=== PATIENT | female | born 1970 | race Caucasian/White ===

== ENCOUNTER 2020-06-01 00:47 | Emergency (ER) | payer OTHER ==
[~2020-06-01] VITALS: Ht 167.6 cm; Wt 72.6 kg
[~2020-06-01 00:47] MED LIST: LISI-648; SERT50TA
[2020-06-01 03:00] VITALS: BP 128/83
[2020-06-01 03:47] LABS: Urine Bacteria NONE SEEN /hpf (None Seen); Urine Blood TRACE /uL (Negative); Urine Specific Gravity 1.006 (1.001-1.035); Urine WBC <1 /hpf (0 - 5)
== END 2020-06-01 05:15 | disposition home or self-care (01) ==
LOC: EDBD 00:47 → EDUNIT# 00:47 → ER 00:51
DX: T78.1XXA Other adverse food reactions, not elsewhere classified, initial encounter (principal); I10 Essential (primary) hypertension; T78.49XA Other allergy, initial encounter; F41.9 Anxiety disorder, unspecified; X58.XXXA Exposure to other specified factors, initial encounter
CPT/HCPCS: 81001

== ENCOUNTER 2024-02-12 01:03 | Inpatient (IN) | payer MEDICAID, OTHER ==
[~2024-02-12] VITALS: Ht 167.6 cm; Wt 89.2 kg
[~2024-02-12 01:03] MED LIST changes: -LISI-648; +LISI10TA34; +LISI20TA56 PO; +METH4PAK PO
[2024-02-12 01:27] LABS: Basophils # (auto) 0 10 ^3/uL (0-0.2); Basophils % (auto) 0.5 % (0.0-2.0); Eosinophils # (auto) 0.3 10 ^3/uL (0-0.8); Eosinophils % (auto) 3.1 % (0.0-7.0); Hematocrit 41.6 % (36.0-46.0); Hemoglobin 13.9 g/dL (12.2-16.2); Lymphocytes # (auto) 1.1 10 ^3/uL (0.4-5.4); Lymphocytes % (auto) 13.4 % (10.0-50.0); Mean Corpuscular Hemoglobin 29.6 pg (28.0-32.0); Mean Corpuscular Hgb Conc. 33.5 g/dL (32.0-36.0); Mean Corpuscular Volume 88.4 fL (80.0-100.0); Monocytes # (auto) 0.7 10 ^3/uL (0-1.3); Monocytes % (auto) 8.3 % (0.0-12.0); Neutrophils # (auto) 6.4 10 ^3/uL (1.6-8.6); Neutrophils % (auto) 74.7 % (37.0-80.0); Nucleated Red Blood Cells % 0.1 %; Red Blood Cells 4.71 10^6/uL (4.0-5.20); Red Cell Distribution Width 13.8 % (11.8-14.3); White Blood Cell 8.6 10^3/uL (4.4-10.8)
[2024-02-12 01:47] LABS: Alanine Aminotransferase 27 U/L (7-40); Albumin 4.8 g/dL (3.2-4.8); Alkaline Phosphatase 116 U/L (46-116); Anion Gap 5 (5-15); Aspartate Aminotransferase 21 U/L (13-40); BUN/Creatinine Ratio 13.7 (10.0-20.0); Blood Urea Nitrogen 10 mg/dL (9-23); Calcium 10.1 mg/dL (8.7-10.4); Carbon Dioxide 29 mmol/L (20-30); Chloride 103 mmol/L (98-107); Glucose 100 mg/dL (74-106); Potassium 3.5 mmol/L (3.5-5.1); Sodium 137 mmol/L (136-145)
[2024-02-12 01:48] LABS: Bilirubin, Total 0.4 mg/dL (0.2-1.0)
[2024-02-12 02:01] LABS: Urine Bacteria None Seen /hpf (None Seen)
[2024-02-12 02:13] LABS: Urine Blood TRACE /uL (Negative); Urine Clarity Clear (Clear); Urine Color Colorless (Yellow); Urine Protein, UAD Negative (Negative); Urine Specific Gravity 1.005 (1.001-1.035); Urine Urobilinogen Normal (Negative); Urine WBC 3 /hpf (0 - 5); Urine pH 7.5 (5.0-9.0)
[2024-02-12] MEDS: LORazepam 0.5 MG TAB PO ONE (04:14)
[2024-02-12] MEDS: ACETAMINOPHEN 500 MG TAB PO ONE (04:14)
[2024-02-12] MEDS: NITROGLYCERIN 2% OINT 1GM PKG TD ONE (04:15)
[2024-02-12] MEDS ORDERED: ONDANSETRON HCL 4 MG/2 ML VIAL IV PRN (06:15)
[2024-02-12] MEDS ORDERED: MORPHINE SULFATE INJ 2 MG/ml SYRG IV PRN ×2 (06:15→07:00)
[2024-02-12] MEDS ORDERED: DOCUSATE SOD 100 MG CAP PO PRN (06:15)
[2024-02-12] MEDS ORDERED: hydrALAZINE HCL 20 MG/ML VL IV PRN (06:15)
[2024-02-12] MEDS: SODIUM CHLORIDE 0.9% 1,000 ML IV SCH (06:28)
[2024-02-12 06:32] LABS: Basophils # (auto) 0 10 ^3/uL (0-0.2); Basophils % (auto) 0.5 % (0.0-2.0); Eosinophils # (auto) 0.1 10 ^3/uL (0-0.8); Hematocrit 38.8 % (36.0-46.0); Hemoglobin 13.4 g/dL (12.2-16.2); Lymphocytes # (auto) 1.2 10 ^3/uL (0.4-5.4); Lymphocytes % (auto) 16.5 % (10.0-50.0); Mean Corpuscular Hemoglobin 30.2 pg (28.0-32.0); Mean Corpuscular Hgb Conc. 34.5 g/dL (32.0-36.0); Mean Corpuscular Volume 87.5 fL (80.0-100.0); Monocytes # (auto) 0.6 10 ^3/uL (0-1.3); Monocytes % (auto) 7.8 % (0.0-12.0); Neutrophils # (auto) 5.3 10 ^3/uL (1.6-8.6); Neutrophils % (auto) 73.2 % (37.0-80.0); Red Blood Cells 4.43 10^6/uL (4.0-5.20); Red Cell Distribution Width 13.6 % (11.8-14.3); White Blood Cell 7.3 10^3/uL (4.4-10.8)
[2024-02-12 06:46] LABS: Alanine Aminotransferase 25 U/L (7-40); Albumin 4.6 g/dL (3.2-4.8); Alkaline Phosphatase 109 U/L (46-116); Anion Gap 12 (5-15); Aspartate Aminotransferase 24 U/L (13-40); BUN/Creatinine Ratio 16.4 (10.0-20.0); Blood Urea Nitrogen 12 mg/dL (9-23); Calcium 9.3 mg/dL (8.5-10.1); Carbon Dioxide 22 mmol/L (20-30); Chloride 103 mmol/L (98-107); Glucose 118 mg/dL (74-106); Potassium 3.5 mmol/L (3.5-5.1); Sodium 137 mmol/L (136-145)
[2024-02-12 06:47] LABS: Bilirubin, Total 0.3 mg/dL (0.2-1.0); Total Protein 7.1 g/dL (5.7-8.2)
[2024-02-12] MEDS ORDERED: NITROGLYCERIN 0.4 MG SL TAB SL PRN (07:00)
[2024-02-12] MEDS: ASPirin 81 mg TAB PO SCH (10:29)
[2024-02-12] MEDS: METOPROLOL TARTRATE 25 MG TAB PO SCH (10:32)
[2024-02-12 11:32] VITALS: PULSE 90; RESP 17; O2SAT 95
[2024-02-12] MEDS: LISINOPRIL 5 MG TAB PO ONE (14:58)
[2024-02-12 18:47] VITALS: BP 145/77; PULSE 102; TEMP 99.8; O2SAT 98
[2024-02-12 20:00] VITALS: PULSE 103
[2024-02-12] MEDS: ACETAMINOPHEN 325 MG TAB PO PRN (20:56)
[2024-02-12 21:00] VITALS: BP 132/70; PULSE 116; RESP 20; TEMP 99.8; O2SAT 94
[2024-02-12] MEDS: METOPROLOL TARTRATE 50 MG TAB PO SCH (21:39)
[2024-02-12] MEDS: ATORVASTATIN 20 MG TAB PO SCH (21:39)
[2024-02-13] VITALS (8 sets, daily range): BP systolic 120–161; BP diastolic 70–91; PULSE 71–100; RESP 18–22; TEMP 97.8–98.5; O2SAT 92–97
[2024-02-13 06:20] LABS: Basophils # (auto) 0 10 ^3/uL (0-0.2); Basophils % (auto) 0.5 % (0.0-2.0); Eosinophils # (auto) 0.1 10 ^3/uL (0-0.8); Eosinophils % (auto) 1.5 % (0.0-7.0); Hematocrit 39.7 % (36.0-46.0); Hemoglobin 13.2 g/dL (12.2-16.2); Lymphocytes # (auto) 1.6 10 ^3/uL (0.4-5.4); Lymphocytes % (auto) 31.6 % (10.0-50.0); Mean Corpuscular Hemoglobin 29.2 pg (28.0-32.0); Mean Corpuscular Hgb Conc. 33.2 g/dL (32.0-36.0); Mean Corpuscular Volume 87.9 fL (80.0-100.0); Monocytes # (auto) 0.8 10 ^3/uL (0-1.3); Monocytes % (auto) 16.6 % (0.0-12.0); Neutrophils # (auto) 2.5 10 ^3/uL (1.6-8.6); Neutrophils % (auto) 49.8 % (37.0-80.0); Nucleated Red Blood Cells % 0.1 %; Red Blood Cells 4.51 10^6/uL (4.0-5.20); Red Cell Distribution Width 14.3 % (11.8-14.3); White Blood Cell 5.1 10^3/uL (4.4-10.8)
[2024-02-13 06:51] LABS: Alanine Aminotransferase 23 U/L (7-40); Alkaline Phosphatase 96 U/L (46-116); Anion Gap 7 (5-15); Aspartate Aminotransferase 21 U/L (13-40); Blood Urea Nitrogen 9 mg/dL (9-23); Carbon Dioxide 25 mmol/L (20-30); Chloride 107 mmol/L (98-107); Glucose 95 mg/dL (74-106); Potassium 3.6 mmol/L (3.5-5.1); Sodium 139 mmol/L (136-145)
[2024-02-13 06:52] LABS: Albumin 4.2 g/dL (3.2-4.8); Bilirubin, Total 0.5 mg/dL (0.2-1.0); Total Protein 6.9 g/dL (5.7-8.2)
[2024-02-13 06:58] LABS: Cholesterol 128 mg/dL (< 200); HDL Cholesterol 34 mg/dL (40-59); LDL Cholesterol 90 mg/dL (< 100); Triglycerides 82 mg/dL (< 150)
[2024-02-13] MEDS: LISINOPRIL 5 MG TAB PO SCH (08:26)
[2024-02-13] MEDS: HYDROcodone-ACET 5/325MG TAB PO PRN (09:42)
[2024-02-14 01:00] VITALS: BP 128/82; PULSE 77; RESP 17; TEMP 98; O2SAT 99
[2024-02-14 05:00] VITALS: BP 137/55; PULSE 79; RESP 17; TEMP 98.1; O2SAT 94
[2024-02-14 07:30] VITALS: PULSE 74
[2024-02-14] MEDS: LISINOPRIL 20 MG TAB PO SCH (09:27)
[2024-02-14 12:32] VITALS: BP 131/85; PULSE 77; TEMP 36.7
[2024-02-15 08:12] LABS: Hepatitis B Surface Antibody Negative (Negative)
[2024-02-15 08:46] LABS: Hepatitis C Antibody Negative (Negative)
== END 2024-02-14 13:45 | disposition home or self-care (01) | DRG 243 ==
LOC: ER 01:03 → TELE 06:53 → TELE-WESTW 18:22
PROVIDERS: ADMIT Nurse Practitioner Family; ATTEND Internal Medicine Geriatric Medicine
DX: K21.9 Gastro-esophageal reflux disease without esophagitis (principal); E78.00 Pure hypercholesterolemia, unspecified; M94.0 Chondrocostal junction syndrome [Tietze]; I10 Essential (primary) hypertension; F41.9 Anxiety disorder, unspecified; I25.9 Chronic ischemic heart disease, unspecified; F12.90 Cannabis use, unspecified, uncomplicated
CPT/HCPCS: 36415; 71045; 80053; 80061; 81001; 84443; 84484; 85025; 86706; 86803; 93005; 93306; 93970; G0378

== ENCOUNTER → 2024-06-01 | Outpatient (CLI) | payer MEDICAID ==
[~2024-06-01] MED LIST changes: -LISI10TA34; -METH4PAK PO
[2024-06-01 12:38] LABS: Cholesterol 145 mg/dL (< 200)
[2024-06-01 12:39] LABS: LDL Cholesterol 84 mg/dL (< 100); Triglycerides 161 mg/dL (< 150)
[2024-06-01 12:40] LABS: HDL Cholesterol 36 mg/dL (40-59)
== END | disposition home or self-care (01) ==
LOC: LAB 11:38
PROVIDERS: ATTEND Internal Medicine
DX: R73.03 Prediabetes (principal); E78.5 Hyperlipidemia, unspecified
CPT/HCPCS: 36415; 80061; 83036

== ENCOUNTER 2024-07-09 18:47 | Emergency (ER) | payer MEDICAID ==
[~2024-07-09] VITALS: Ht 167.6 cm; Wt 82.0 kg
[2024-07-09 19:03] VITALS: BP 188/90; PULSE 104; RESP 20; O2SAT 99
[2024-07-09] MEDS ORDERED: cloNIDine HCL 0.1 MG TAB PO ONE (19:30)
[2024-07-09 19:50] LABS: Basophils # (auto) 0.1 10 ^3/uL (0-0.2); Basophils % (auto) 0.8 % (0.0-2.0); Eosinophils # (auto) 0.2 10 ^3/uL (0-0.8); Hematocrit 41.6 % (36.0-46.0); Hemoglobin 14.3 g/dL (12.2-16.2); Lymphocytes # (auto) 2.1 10 ^3/uL (0.4-5.4); Lymphocytes % (auto) 24.7 % (10.0-50.0); Mean Corpuscular Hemoglobin 30.3 pg (28.0-32.0); Mean Corpuscular Hgb Conc. 34.3 g/dL (32.0-36.0); Mean Corpuscular Volume 88.3 fL (80.0-100.0); Monocytes # (auto) 0.6 10 ^3/uL (0-1.3); Monocytes % (auto) 6.4 % (0.0-12.0); Neutrophils # (auto) 5.8 10 ^3/uL (1.6-8.6); Neutrophils % (auto) 66.1 % (37.0-80.0); Platelet Count (auto) 264 10^3/uL (140-450); Red Blood Cells 4.71 10^6/uL (4.0-5.20); Red Cell Distribution Width 13.7 % (11.8-14.3); White Blood Cell 8.7 10^3/uL (4.4-10.8)
[2024-07-09 19:54] LABS: Chloride 104 mmol/L (98-107); Potassium 3.4 mmol/L (3.5-5.1); Sodium 142 mmol/L (136-145)
[2024-07-09 19:55] LABS: Anion Gap 11 (5-15); Carbon Dioxide 27 mmol/L (20-30)
[2024-07-09 19:56] LABS: Calcium 9.9 mg/dL (8.7-10.4)
[2024-07-09 20:00] LABS: BUN/Creatinine Ratio 14.3 (10.0-20.0); Blood Urea Nitrogen 13 mg/dL (9-23); Glucose 92 mg/dL (74-106)
== END 2024-07-10 06:51 | disposition left against medical advice (07) ==
LOC: EDBD 18:47 → ER 18:47
DX: I10 Essential (primary) hypertension (principal); R00.2 Palpitations; F41.9 Anxiety disorder, unspecified; E78.5 Hyperlipidemia, unspecified; Z79.899 Other long term (current) drug therapy
CPT/HCPCS: 36415; 80048; 83880; 84443; 84484; 85025; 85379; 93005

== ENCOUNTER 2024-07-13 16:00 | Inpatient (IN) | payer MEDICAID ==
[~2024-07-13] VITALS: Ht 167.6 cm; Wt 83.5 kg
[2024-07-13 16:31] LABS: Basophils # (auto) 0.1 10 ^3/uL (0-0.2); Basophils % (auto) 0.7 % (0.0-2.0); Eosinophils # (auto) 0.3 10 ^3/uL (0-0.8); Eosinophils % (auto) 4.2 % (0.0-7.0); Hematocrit 41.1 % (36.0-46.0); Hemoglobin 14.4 g/dL (12.2-16.2); Lymphocytes # (auto) 2.5 10 ^3/uL (0.4-5.4); Lymphocytes % (auto) 32.2 % (10.0-50.0); Mean Corpuscular Volume 88.6 fL (80.0-100.0); Monocytes # (auto) 0.5 10 ^3/uL (0-1.3); Monocytes % (auto) 6.7 % (0.0-12.0); Neutrophils # (auto) 4.4 10 ^3/uL (1.6-8.6); Neutrophils % (auto) 56.2 % (37.0-80.0); Nucleated Red Blood Cells % 0.1 %; Platelet Count (auto) 269 10^3/uL (140-450); Red Blood Cells 4.64 10^6/uL (4.0-5.20); Red Cell Distribution Width 13.8 % (11.8-14.3); White Blood Cell 7.8 10^3/uL (4.4-10.8)
[2024-07-13 16:49] LABS: Alanine Aminotransferase 32 U/L (7-40); Albumin 4.8 g/dL (3.2-4.8); Alkaline Phosphatase 117 U/L (46-116); Anion Gap 7 (5-15); Aspartate Aminotransferase 18 U/L (13-40); BUN/Creatinine Ratio 25.4 (10.0-20.0); Bilirubin, Total 0.5 mg/dL (0.2-1.0); Blood Urea Nitrogen 18 mg/dL (9-23); Carbon Dioxide 28 mmol/L (20-30); Chloride 105 mmol/L (98-107); Glucose 95 mg/dL (74-106); Potassium 4.2 mmol/L (3.5-5.1); Sodium 140 mmol/L (136-145); Total Protein 7.3 g/dL (5.7-8.2)
[2024-07-13 20:22] VITALS: PULSE 80; RESP 16; O2SAT 98
[2024-07-13] MEDS: SODIUM CHLORIDE 0.9% 1,000 ML IV ONE (20:30)
[2024-07-13 23:00] VITALS: PULSE 80; RESP 16; O2SAT 98
[2024-07-13] MEDS ORDERED: MORPHINE SULFATE INJ 2 MG/ml SYRG IV PRN (23:00)
[2024-07-13] MEDS ORDERED: NITROGLYCERIN 0.4 MG SL TAB SL PRN (23:00)
[2024-07-13] MEDS ORDERED: ONDANSETRON HCL 4 MG/2 ML VIAL IV PRN (23:00)
[2024-07-13] MEDS ORDERED: TEMAZEPAM 15 MG CAP PO PRN (23:00)
[2024-07-14] VITALS (8 sets, daily range): BP systolic 136–142; BP diastolic 76–85; PULSE 58–104; RESP 17–18; TEMP 97.4–98.4; O2SAT 94–98
[2024-07-14 00:35] LABS: Urine Bacteria None Seen /hpf (None Seen)
[2024-07-14 00:44] LABS: Urine Blood 1+ /uL (Negative); Urine Clarity Clear (Clear); Urine Color Light-Yellow (Yellow); Urine Protein, UAD Negative (Negative); Urine Specific Gravity 1.016 (1.001-1.035); Urine Urobilinogen Normal (Negative); Urine WBC 18 /hpf (0 - 5); Urine pH 6.5 (5.0-9.0)
[2024-07-14] MEDS ORDERED: METO-158 PO (03:29)
[2024-07-14 06:35] LABS: Chloride 107 mmol/L (98-107); Potassium 3.6 mmol/L (3.5-5.1); Sodium 142 mmol/L (136-145)
[2024-07-14 06:36] LABS: Anion Gap 7 (5-15); Carbon Dioxide 28 mmol/L (20-30)
[2024-07-14 06:37] LABS: Calcium 9.5 mg/dL (8.7-10.4)
[2024-07-14 06:41] LABS: Glucose 87 mg/dL (74-106)
[2024-07-14 06:42] LABS: BUN/Creatinine Ratio 19.1 (10.0-20.0); Blood Urea Nitrogen 13 mg/dL (9-23)
[2024-07-14 08:49] LABS: Amphetamine Screen, Urine Neg (NEGATIVE); Benzodiazephine Screen, Urine Neg (NEGATIVE)
[2024-07-14 08:50] LABS: Barbiturate Scree,Urine Neg (NEGATIVE); Cannabinoid Screen, Urine Pos (NEGATIVE); Cocaine Screen, Urine Neg (NEGATIVE); Opiate Scree,Urine Neg (NEGATIVE); Phencyclidine Screen, Urine Neg (NEGATIVE)
[2024-07-14] MEDS: cefTRIAXone 1GM/50ML D5W 50 ML IV SCH (09:14)
[2024-07-14] MEDS: hydroCHLOROthiazide 25 MG TAB PO SCH (09:14)
[2024-07-14] MEDS: METOPROLOL TARTRATE 50 MG TAB PO SCH (09:15)
[2024-07-14] MEDS: LISINOPRIL 20 MG TAB PO SCH (09:15)
[2024-07-14] MEDS: ATORVASTATIN 20 MG TAB PO SCH (21:42)
[2024-07-15] VITALS (9 sets, daily range): BP systolic 120–168; BP diastolic 65–99; PULSE 60–103; RESP 15–19; TEMP 97.5–98.3; O2SAT 94–98
[2024-07-15] MEDS: PANTOPRAZOLE 40 MG TAB PO SCH (06:32)
[2024-07-15] MEDS: ACETAMINOPHEN 325 MG TAB PO PRN (17:28)
[2024-07-16 05:00] VITALS: BP 134/79; PULSE 60; RESP 18; TEMP 98.4; O2SAT 95
[2024-07-16 06:45] LABS: Basophils # (auto) 0 10 ^3/uL (0-0.2); Basophils % (auto) 0.7 % (0.0-2.0); Eosinophils # (auto) 0.3 10 ^3/uL (0-0.8); Eosinophils % (auto) 4.3 % (0.0-7.0); Hematocrit 42.1 % (36.0-46.0); Hemoglobin 14.8 g/dL (12.2-16.2); Lymphocytes # (auto) 2.7 10 ^3/uL (0.4-5.4); Lymphocytes % (auto) 40.5 % (10.0-50.0); Mean Corpuscular Hgb Conc. 35.2 g/dL (32.0-36.0); Mean Corpuscular Volume 87.9 fL (80.0-100.0); Monocytes # (auto) 0.5 10 ^3/uL (0-1.3); Monocytes % (auto) 7.7 % (0.0-12.0); Neutrophils # (auto) 3.1 10 ^3/uL (1.6-8.6); Neutrophils % (auto) 46.8 % (37.0-80.0); Nucleated Red Blood Cells % 0.1 %; Platelet Count (auto) 255 10^3/uL (140-450); Red Blood Cells 4.79 10^6/uL (4.0-5.20); Red Cell Distribution Width 13.5 % (11.8-14.3); White Blood Cell 6.7 10^3/uL (4.4-10.8)
[2024-07-16 07:04] LABS: Alanine Aminotransferase 27 U/L (7-40); Albumin 4.6 g/dL (3.2-4.8); Alkaline Phosphatase 117 U/L (46-116); Anion Gap 9 (5-15); Aspartate Aminotransferase 15 U/L (13-40); BUN/Creatinine Ratio 20.5 (10.0-20.0); Bilirubin, Total 0.4 mg/dL (0.2-1.0); Blood Urea Nitrogen 15 mg/dL (9-23); Calcium 9.9 mg/dL (8.7-10.4); Carbon Dioxide 26 mmol/L (20-30); Chloride 106 mmol/L (98-107); Cholesterol 148 mg/dL (< 200); Glucose 105 mg/dL (74-106); HDL Cholesterol 34 mg/dL (40-59); LDL Cholesterol 78 mg/dL (< 100); Magnesium 2.2 mg/dL (1.6-2.6); Potassium 3.6 mmol/L (3.5-5.1); Sodium 141 mmol/L (136-145); Triglycerides 265 mg/dL (< 150)
[2024-07-16 07:05] LABS: Total Protein 7.4 g/dL (5.7-8.2)
[2024-07-16 08:00] VITALS: PULSE 66
[2024-07-16 09:00] VITALS: BP 150/84; PULSE 78; RESP 18; TEMP 97.9; O2SAT 95
[2024-07-16] MEDS ORDERED: ATOR20TA50 PO (09:21)
[2024-07-16] MEDS ORDERED: CIPR-173 PO (09:21)
[2024-07-16] MEDS ORDERED: HYDR25TA5 PO (09:21)
[2024-07-16 11:23] VITALS: BP 150/84; PULSE 78; TEMP 36.6
[2024-07-17 11:06] LABS: Free Thyroxine Index 1.9 (1.2-4.9)
== END 2024-07-16 12:15 | disposition home or self-care (01) | DRG 463 ==
LOC: ER 16:00 → TELE 22:53 → TELE-CENTR 23:35
PROVIDERS: ADMIT Nurse Practitioner; ATTEND Family Medicine
PROC: 5A09357 Assistance with Respiratory Ventilation, Less than 24 Consecutive Hours, Continuous Positive Airway Pressure (ICD-10-PCS; principal; 2024-07-15)
PROC: 5A09357 Assistance with Respiratory Ventilation, Less than 24 Consecutive Hours, Continuous Positive Airway Pressure (ICD-10-PCS; 2024-07-16)
DX: N30.00 Acute cystitis without hematuria (principal); E66.9 Obesity, unspecified; N95.1 Menopausal and female climacteric states; E78.1 Pure hyperglyceridemia; I10 Essential (primary) hypertension; K21.9 Gastro-esophageal reflux disease without esophagitis; E78.5 Hyperlipidemia, unspecified; R23.2 Flushing; F41.9 Anxiety disorder, unspecified; Z68.31 Body mass index [BMI] 31.0-31.9, adult; Z82.5 Family history of asthma and other chronic lower respiratory diseases; Z83.3 Family history of diabetes mellitus; Z82.49 Family history of ischemic heart disease and other diseases of the circulatory system
CPT/HCPCS: 36415; 70450; 71045; 80048; 80053; 80061; 80307; 81001; 82607; 83735; 84443; 84484; 85025; 93005; 93017; 93306; G0378

== ENCOUNTER → 2024-10-12 | Outpatient (CLI) | payer MEDICAID ==
[~2024-10-12] MED LIST changes: +ATOR20TA50 PO; +CIPR-173 PO; +HYDR25TA5 PO; +METO-158 PO
[2024-10-12 13:10] LABS: Creatinine, Urine 85.69 mg/dL (30.0-125.0)
[2024-10-12 13:23] LABS: Cholesterol 209 mg/dL (< 200); HDL Cholesterol 40 mg/dL (40-59); LDL Cholesterol 141 mg/dL (< 100); Triglycerides 180 mg/dL (< 150)
== END | disposition home or self-care (01) ==
LOC: LAB 12:08
PROVIDERS: ATTEND Internal Medicine
DX: I10 Essential (primary) hypertension (principal); E78.5 Hyperlipidemia, unspecified; R73.03 Prediabetes
CPT/HCPCS: 36415; 80061; 82043; 82306; 82570

== ENCOUNTER → 2025-02-27 | Outpatient (CLI) | payer MEDICAID ==
[2025-02-27 13:21] LABS: Urine Bacteria FEW /hpf (None Seen); Urine Blood 1+ /uL (Negative); Urine Clarity Clear (Clear); Urine Color Light-Yellow (Yellow); Urine Mucus FEW (None Seen); Urine Protein, UAD Negative (Negative); Urine Specific Gravity 1.018 (1.001-1.035); Urine Squamous Epithelial Cell FEW /hpf (<5); Urine Urobilinogen Normal (Negative); Urine WBC 18 /HPF (0-5); Urine pH 5.5 (5.0-9.0)
[2025-02-27 13:31] LABS: Triglycerides 234 mg/dL (< 150)
[2025-02-27 13:32] LABS: LDL Cholesterol 163 mg/dL (< 100)
[2025-02-27 13:33] LABS: Cholesterol 238 mg/dL (< 200); HDL Cholesterol 38 mg/dL (40-59)
== END | disposition home or self-care (01) ==
LOC: LAB 12:43
PROVIDERS: ATTEND Internal Medicine
DX: E78.5 Hyperlipidemia, unspecified (principal); R31.29 Other microscopic hematuria
CPT/HCPCS: 36415; 80061; 81001

== ENCOUNTER 2025-09-11 12:13 | Outpatient (CLI) | payer MEDICAID ==
[2025-09-11 13:13] LABS: Hematocrit 41.6 % (36.0-46.0); Hemoglobin 14.1 g/dL (12.2-16.2); Mean Corpuscular Hemoglobin 30.3 pg (28.0-32.0); Mean Corpuscular Volume 89.0 fL (80.0-100.0); Nucleated Red Blood Cells % 0.1 %
[2025-09-11 13:40] LABS: Alanine Aminotransferase 23 U/L (7-40); Anion Gap 9 (5-15); BUN/Creatinine Ratio 18.9 (10.0-20.0); Blood Urea Nitrogen 14 mg/dL (9-23); Calcium 10.1 mg/dL (8.7-10.4); Carbon Dioxide 30 mmol/L (20-31); Chloride 104 mmol/L (98-107); Glucose 90 mg/dL (74-106); Potassium 4.4 mmol/L (3.5-5.1); Sodium 143 mmol/L (136-145); Total Protein 7.7 g/dL (5.7-8.2); Triglycerides 148 mg/dL (< 150)
[2025-09-11 13:41] LABS: Albumin 4.6 g/dL (3.2-4.8); Bilirubin, Total 0.5 mg/dL (0.2-1.0); Cholesterol 147 mg/dL (< 200); HDL Cholesterol 41 mg/dL (40-59)
[2025-09-11 13:45] LABS: Alkaline Phosphatase 124 U/L (46-116)
== END 2025-09-11 17:00 | disposition home or self-care (01) ==
LOC: LAB 12:13
PROVIDERS: ATTEND Internal Medicine
DX: E78.5 Hyperlipidemia, unspecified (principal); K21.9 Gastro-esophageal reflux disease without esophagitis; G47.33 Obstructive sleep apnea (adult) (pediatric); Z79.899 Other long term (current) drug therapy
CPT/HCPCS: 36415; 80053; 80061; 83036; 85025

== ENCOUNTER 2025-09-18 13:12 | Outpatient (CLI) | payer MEDICAID | END 2025-09-18 17:00 | disposition home or self-care (01) | LOC: LAB 13:12 | PROVIDERS: ATTEND Internal Medicine | DX: E78.5 Hyperlipidemia, unspecified (principal); K21.9 Gastro-esophageal reflux disease without esophagitis; G47.33 Obstructive sleep apnea (adult) (pediatric) | CPT/HCPCS: 82270 ==